=== PATIENT | male | born 1975 | race Caucasian/White ===

== ENCOUNTER 2016-10-11 18:43 | Emergency (ER) | payer OTHER ==
[~2016-10-11] VITALS: Ht 190.5 cm; Wt 117.9 kg
[2016-10-11 18:50] VITALS: BP 209/94
[2016-10-11] MEDS ORDERED: NAPR500T3 PO (19:31)
[2016-10-11] MEDS ORDERED: HYDR-971 PO (19:31)
[2016-10-11] MEDS ORDERED: DIAZ5TAB PO (19:31)
--- NOTE | 2016-10-11 19:31 | PHYS DOC ---
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 Patient denies any injury. Patient states he has tried taking Robaxin from the X- girlfriend with no relief. Patient states he does not take any statins. Patient states he has been pushing fluids including Gatorade. Review of Systems Review of Systems Constitutional: Denies fever or chills [] Eyes: Denies change in visual acuity, redness, or eye pain [] HENT: Denies nasal congestion or sore throat [] Respiratory: Denies cough or shortness of breath [] Cardiovascular: No additional information not addressed in HPI [] GI: Denies abdominal pain, nausea, vomiting, bloody stools or diarrhea [] : Denies dysuria or hematuria [] Musculoskeletal: right hamstring muscle cramp Integument: Denies rash or skin lesions [] Neurologic: Denies headache, focal weakness or sensory changes [] Endocrine: Denies polyuria or polydipsia [] Allergies Allergies Allergies Coded Allergies Type Severity Reaction Last Updated Verified Penicillins Allergy Intermediate 06/23/14 No Physical Exam Physical Exam Constitutional: Well developed, well nourished, no acute distress, non-toxic appearance. [] HENT: Normocephalic, atraumatic, bilateral external ears normal, oropharynx moist, no oral exudates, nose normal. [] Eyes: PERRLA, EOMI, conjunctiva normal, no discharge. [] Neck: Normal range of motion, no tenderness, supple, no stridor. [] Cardiovascular:Heart rate regular rhythm, no murmur [] Lungs & Thorax: Bilateral breath sounds clear to auscultation [] Abdomen: Bowel sounds normal, soft, no tenderness, no masses, no pulsatile masses. [] Skin: Warm, dry, no erythema, no rash. [] Back: No tenderness, no CVA tenderness. [] Extremities: No tenderness, no cyanosis, no clubbing, ROM intact, no edema. [] Neurologic: Alert and oriented X 3, normal motor function, normal sensory function, no focal deficits noted. [] Psychologic: Affect normal, judgement normal, mood normal. [] Current Patient Data Vital Signs Vital Signs Date Time Temp Pulse Resp B/P (MAP) Pulse Ox O2 Delivery O2 Flow Rate FiO2 10/11/16 18:50 98.4 114 20 100 Room Air 98.4 EKG EKG [] Radiology/Procedures Radiology/Procedures [] Course & Med Decision Making Course & Med Decision Making Pertinent Labs and Imaging studies reviewed. (See chart for details) Patient is in the ED with right hamstring muscle cramp that began 6 hours ago. I offered him labs and an ultrasound which he declined, he states he does not have time for that. His blood pressure was 209/94, no documented history of hypertension. At this point he is requesting pain medication including hydrocodone and Valium. 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 Prescriptions were given to him and he was discharged with instructions to return to the ED at any point symptoms worsen. I recommended he follows up with an orthopedic doctor, he states he has his own doctor he will follow-up next week. He requested a note for work which was provided. Dragon Disclaimer Dragon Disclaimer This electronic medical record was generated, in whole or in part, using a voice recognition dictation system. Departure Departure Impression: Primary Impression: Muscle cramp Additional Impression: High blood pressure Disposition: 01 HOME, SELF-CARE Condition: STABLE Referrals: ARMANDO INIGUEZ MD (PCP) SAMIRA PEREZ MD follow up next week Patient Instructions: Muscle Cramps, [id number] Additional Instructions: You were seen with a muscle cramp of the right hamstring. Please return to the ED if symptoms worsen. Follow-up with orthopedic doctor provided or your own doctor next week. Your blood pressure was 209/94, normal blood pressure is 120/ 80. This is very high. It could be related to the pain but we highly recommend you retake it at home and follow-up with your doctor if it is still elevated. Scripts Naproxen (NAPROXEN) 500 Mg Tablet 1 TAB PO BID, #60 TAB 1 Refill Prov: VAIBHAV DICKERSON [employer] 10/11/16 Diazepam (VALIUM) 5 Mg Tablet 5 MG PO TID, #15 TAB Prov: VAIBHAV DICKERSON [employer] 10/11/16 Hydrocodone/Apap 5-325 (NORCO 5-325 TABLET) 1 Each Tablet 1-2 TAB PO Q4-6HRS, #20 TAB Prov: VAIBHAV DICKERSON APRN 10/11/16 Problem Qualifiers Additional Impression: High blood pressure Hypertension type: unspecified Qualified Codes: I10 - Essential (primary) hypertension VAIBHAV DICKERSON APRN Oct 11, 2016 19:31
== END 2016-10-11 19:42 | disposition home or self-care (01) ==
LOC: ER 19:39
DX: R25.2 Cramp and spasm (principal); R03.0 Elevated blood-pressure reading, without diagnosis of hypertension; Z88.0 Allergy status to penicillin
CPT/HCPCS: 99283

== ENCOUNTER 2020-11-27 15:35 | Emergency (ER) | payer OTHER ==
[~2020-11-27] VITALS: Ht 190.5 cm; Wt 128.0 kg
[~2020-11-27 15:35] MED LIST: DIAZ5TAB PO; HYDR-3164 PO; NAPR-514 PO
[2020-11-27] MEDS ORDERED: ORPHENADRINE CITRATE 60 MG/2 ML VIAL. IM ONE (16:30)
[2020-11-27] MEDS ORDERED: KETOROLAC TROMETHAMINE 10 MG TABLET PO ONE (16:30)
[2020-11-27 16:44] VITALS: BP 160/90
--- NOTE | 2020-11-27 16:45 | PHYS DOC ---
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 He rates his pain 7/10 in the department. Patient works for the local [employer] and stated he was lifting a heavy patient when he "felt like the ribs in my back and went back together." He reports that it "felt like everything pulled apart." He now has thoracic through low back pain that radiates to his right lower extremity. He also reports some chest wall tenderness and bilateral upper extremity paresthesias. Patient denies cardiac history as well as hypertension. He has not experienced any significant back injuries in the past. Patient denies chest pressure, diaphoresis, nausea and vomiting. Patient has no other complaints at this time. Review of Systems: Review of Systems: 12 systems reviewed. ROS negative except as mentioned in HPI. Heart Score: C/O Chest Pain: N/A Current Medications: Current Medications Medications (Trade) Dose Ordered Sig/Zandra Start Time Stop Time Status Last Admin Dose Admin Ketorolac Tromethamine (Toradol) 20 mg 1X ONCE 11/27/20 16:30 11/27/20 16:31 UNV Orphenadrine Citrate (Norflex) 60 mg 1X ONCE 11/27/20 16:30 11/27/20 16:31 UNV Allergies: Allergies: Allergies Coded Allergies Type Severity Reaction Last Updated Verified Penicillins Allergy Intermediate 06/23/14 No Physical Exam: PE: Constitutional: Well developed, well nourished, no acute distress, non-toxic appearance. Neck: Normal range of motion, no step-offs, no bony tenderness, no paraspinal tenderness, no stridor. Cardiovascular: Heart rate regular rhythm, no murmur. Lungs & Thorax: Bilateral breath sounds clear to auscultation. Abdomen: Bowel sounds normal, soft, no tenderness, no masses, no pulsatile masses. Skin: Warm, dry, no erythema, no rash, no abrasions, no laceration. Back: No step-offs, no bony tenderness, thoracic and lumbar paraspinal tenderness appreciated. Extremities: No tenderness, no cyanosis, no clubbing, ROM intact, no edema. Neurologic: Alert and oriented x3, extremity strength 5/5 shoulder flexion, extension, abduction, adduction; forearm flexion, extension; inventory taker strength; hip flexion, extension; knee flexion, extension; dorsiflexion, plantarflexion; normal sensory function, no focal deficits noted. Current Patient Data: Vital Signs: Vital Signs Date Time Temp Pulse Resp B/P (MAP) Pulse Ox O2 Delivery O2 Flow Rate FiO2 11/27/20 16:22 97.8 75 16 161/95 (117) 97 Room Air 97.8 EKG: EKG: EKG Interpreted by Dr. Garcia: Regular rate and rhythm 75 bpm with no ectopic beats. No concerning ST-T wave changes. QT 366 ms/QTc 411 ms. Radiology/Procedures: Radiology/Procedures: PROCEDURE: CHEST PA & LATERAL XR CHEST 2V CLINICAL INDICATIONS: Reason: rib pain / Spl. Instructions: / History: COMPARISON: None available. Findings: Old granulomatous disease is seen. No acute lung infiltrate or pleural effusion or pulmonary edema or lung mass or pneumothorax is seen. The heart size, pulmonary vasculature, mediastinum and both vivek are unremarkable. The osseous structures appear intact. IMPRESSION: No acute radiographic abnormality is seen. Electronically signed by: Alo Barker MD (11/27/2020 4:54 PM) [id number] Course & Med Decision Making: Course & Med Decision Making Pertinent Labs and Imaging studies reviewed. (See chart for details) Patient appears to be an overall healthy 45-year-old male. His complaints are likely musculoskeletal in nature, however EKG and chest x-ray are ordered to screen for aortic dissection. Patient wishes to not receive Norflex here in the department, as his injury is work-related and he needs to be able to drive safely. He is more comfortable being discharged with a prescription for Norflex instead. Patient prescriptions transmitted to [facility] [employer], as requested. He was prescribed Norflex every 12 hours and ketorolac every 6 hours. If he does not wish to fill the prescription for ketorolac secondary to matamoros, or any other reason, he is instructed to use ibuprofen as an alternative. He already has an appointment with his primary care provider, Dr. Iniguez, who will fill out his work release note. Patient understands and is agreeable to discharge plan. Dragon Disclaimer: Moisés Disclaimer: This electronic medical record was generated, in whole or in part, using a voice recognition dictation system. Departure Departure Impression: Primary Impression: Strain of chest wall Qualified Codes: S29.011A - Strain of muscle and tendon of front wall of thorax, initial encounter Additional Impression: Low back strain Qualified Codes: S39.012A - Strain of muscle, fascia and tendon of lower back, initial encounter Disposition: HOME / SELF CARE / HOMELESS Condition: STABLE Referrals: ARMANDO INIGUEZ MD (PCP) Patient Instructions: Muscle Strain, [id number] Additional Instructions: Your chest x-rays today did not feel any rib fractures or dislocations. You will be treated with Norflex, which you can take every 12 hours, as well as Toradol. If you do not wish to fill the prescription for Toradol, you may substitute with [id number] ibuprofen 800 mg every 6 hours for pain and inflammation. Please return to the emergency department if your pain worsens or if you develop new symptoms. Scripts Ketorolac Tromethamine (KETOROLAC TROMETHAMINE) 10 Mg Tablet 1 TAB PO Q6HRS, #12 TAB Prov: MONA JEAN 11/27/20 Orphenadrine Citrate (ORPHENADRINE CITRATE) 100 Mg Tablet.er 1 TAB PO Q12HR, #20 TAB 1 Refill Prov: MONA JEAN 11/27/20 MONA JEAN Nov 27, 2020 16:45
--- NOTE | 2020-11-27 16:57 | RAD ---
XR CHEST 2V CLINICAL INDICATIONS: Reason: rib pain / Spl. Instructions: / History: COMPARISON: None available. Findings: Old granulomatous disease is seen. No acute lung infiltrate or pleural effusion or pulmonar y edema or lung mass or pneumothorax is seen. The heart size, pulmonary vasculature, mediastinum and both vivek are unremarkable. The osseous structures appear intact. IMPRESSION: No acute radiographic abnormality is seen. Electronically signed by: Alo Barker MD (11/27/2020 4:54 PM) [id number]
[2020-11-27] MEDS ORDERED: ORPH100T PO (17:20)
[2020-11-27] MEDS ORDERED: KETO10TA PO (17:20)
--- NOTE | 2020-11-27 18:29 | EKG ---
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
== END 2020-11-27 17:28 | disposition home or self-care (01) ==
LOC: ER 15:35
DX: S39.012A Strain of muscle, fascia and tendon of lower back, initial encounter (principal); S29.011A Strain of muscle and tendon of front wall of thorax, initial encounter; Z88.0 Allergy status to penicillin; X50.9XXA Other and unspecified overexertion or strenuous movements or postures, initial encounter; Y93.89 Activity, other specified; Y92.89 Other specified places as the place of occurrence of the external cause; Y99.8 Other external cause status
CPT/HCPCS: 71046; 93005; 99283

== ENCOUNTER → 2020-12-12 | Outpatient (CLI) | payer OTHER ==
[2020-11-27 16:44] VITALS: BP 160/90
[~2020-12-12] MED LIST changes: +KETO10TA PO; +ORPH100T PO
--- NOTE | 2020-12-13 20:38 | SLEEP ---
DATE OF STUDY: 12/12/2020 HOME SLEEP STUDY REFERRING PHYSICIAN: Dr. Buck Dominguez The patient is a 45-year-old who weighs 280 pounds with a BMI of 35. The patient's [place] score was 9. The patient underwent home sleep study performed at [facility]. Total recording time was 595 minutes. During the night study, the patient had 390 obstructive apneas, 6 central apneas, 132 mixed apneas and 183 hypopneas. The patient's AHI was 73 per hour. Nocturnal oximetry study revealed an average oxygen saturation of 91% with a lowest of 77%. 144 minutes were spent with oxygen saturation less than 90% and 29 minutes with saturation less than 85%. Mean heart rate 64 beats per minute. IMPRESSION: 1. Severe obstructive sleep apnea at an AHI of 73 per hour. 2. Nocturnal hypoxia secondary to obstructive sleep apnea. RECOMMENDATIONS: 1. The patient would benefit from return to the sleep lab for CPAP titration study. Alternatively home auto CPAP can be arranged. 2. Once the patient is optimally treated with CPAP, then follow up in 4-6 weeks to assess compliance and to document clinical improvement. 3. Weight loss is advised. 4. 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 5. Cautioned regarding driving until symptoms of sleep apnea resolve with above recommendations. TEJA DR: August TID: [id number] CC: BUCK DOMINGUEZ MD
== END ==
LOC: RT 08:06
PROVIDERS: ATTEND Family Medicine
DX: G47.33 Obstructive sleep apnea (adult) (pediatric) (principal); G47.34 Idiopathic sleep related nonobstructive alveolar hypoventilation
CPT/HCPCS: G0399

== ENCOUNTER → 2021-04-16 | Outpatient (CLI) | payer OTHER ==
--- NOTE | 2021-04-16 09:11 | PDOC1 ---
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, on November 24, 2020 patient reports it happened suddenly when he was working with initial sharp pain in the low back with some radiation to the left hip but now it is localized only to the low back itself patient reports he has had chiropractic treatment and is still ongoing with this about once to twice a week also physical therapy which helped but not get the pain reduced significantly patient reports still sharp and aching in the left low back and initially occurred when patient was lifting a patient on the job now it is worse with changing positions rotation of motion especially extension of the lumbar spine and left lateral rotation but without radiation once again. Patient still doing his PT exercises at home on his own and seeing chiropractor regularly. Patient has been taking [id number] analgesics as well ibuprofen which helps by about 20% also. Patient rates his disability rating 0-10 10 me the worst is a 3 with him home responsibilities 8 with recreation 7 social activity occupation 5 vasectomy before with self-care and 0 with life support activities patient reports it does awaken from sleep occasionally but not most nights much better with laying down but worse with sitting change positions standing especially extension of the lumbar spine or reaching above his head causes pain in the left low back as well. Patient reports he does not affect his bowel bladder control does affect his ability to walk occasionally for longer distances is worse with standing for prolonged periods. Patient have an MRI scan lumbar spine showing mild degenerative spondylosis with facet arthritis L4-5 as well as L5-S1. Patient is seeing a neurosurgeon who is recommending non-surgical alternatives at this time. PAST MEDICAL HISTORY: PMH: Arthritis PREVIOUS SURGERIES: Past Surgical Hx: Inguinal hernia repair x2, right ACL repair CURRENT MEDICATIONS: Current Meds: Active Scripts Medications Dose Route/Sig Max Daily Dose Days Date Category ALLERGIES; Allergies: Coded Allergies: Penicillins (Unverified Allergy, Intermediate, 06/23/14) FAMILY HISTORY: Family Hx: Different types of cancers SOCIAL HISTORY: Social Hx: Patient drinks alcohol very rarely does not smoke or use any illegal illicit or recreational drugs does chew tobacco and has for 10+ years is single lives locally in [facility] and 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 PHYSICAL EXAM: VS: Blood pressure is 167/89 pulse 69 respirations 18 temperature is 98.2 F height is 6 foot 3 inches weight is 296 pounds. PE: PHYSICAL EXAMINATION: GENERAL: The patient is awake, alert, oriented, appropriate, very pleasant in demeanor HEENT: Shows normocephalic, atraumatic. Extraocular movements are intact and symmetrical. Full espinosa and mustache. Oral cavity: Mucous membranes moist and pink. Dentition is intact. NECK: Shows anterior throat supple without palpable lymphadenopathy noted. Swallow reflex symmetrical. CHEST: Shows normal on inspection. Breath sounds are clear bilaterally, no rales rhonchi or wheezes auscultated. HEART: Shows S1, S2 clear. No murmurs auscultated. ABDOMEN: Soft, nontender, nondistended. No palpable organomegaly is noted. BACK: Shows spine grossly in the midline. Normal-appearing cervical lordotic curvature. There is slightly increased thoracic kyphosis, some flattening of the lumbar lordotic curvature. Lumbar paraspinous muscles show symmetrical on inspection, on palpation shows some moderate tenderness diffusely throughout the upper, middle and lower distribution of the paraspinous muscles, greater on the left and also into the lower thoracic paraspinous musculature, firm and tender, but without specific trigger points, without radiation of pain. The patient has good rotational motion of the lumbar spine, both laterally as well as extension and flexion with significant tenderness with left lateral rotation greater than 10 degrees but not to the right, significant tenderness with extension lumbar spine axial loading of the lumbar spine better with forward flexion which is performed at 45 degrees without significant difficulty or pain reported. No tenderness over the spinous processes, sacrum or sacroiliac regions. EXTREMITIES: Lower extremities show deep tendon reflexes 2 in the patellar and tendo calcaneus tendons. Motor exam is 5 on a scale of 5 with right dorsiflexion, extension, quadriceps and hamstring flexion and 5/5 on the left. Peripheral pulses are 1+ posterior tibial. No peripheral edema is noted bilaterally. Lower extremities are warm and dry to touch, equal in color and appearance. Straight leg raise noted to be negative bilaterally. Gaenslen's and Wes's maneuvers are negative bilaterally as well. The patient is able to stand, stand on his toes without significant difficulty or loss of balance, walks with a normal-appearing gait does not appear to favor the right or left lower extremity significantly is not use any assistive devices to ambulate. SKIN: Shows warm and dry, good turgor. No edema. No sores, rashes or bruising throughout. 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 Patient would like to pursue interventional techniques. We discussed left-sided lumbar facet medial branch blocks using description as well as anatomical models to describe the procedure. Patient wait for preauthorization with his insurance provider once obtained we will have him return for left-sided L4-5 and L5S1 level medial branch facet blocks with fluoroscopic guidance. In the meantime, patient will continue with epit-sxo-[id number] ibuprofen as well as stretching strengthening and chiropractic visits as scheduled. JEFFERY VEGA MD Apr 16, 2021 09:11
== END | disposition home or self-care (01) ==
LOC: PNCL 08:19
PROVIDERS: ATTEND Anesthesiology
DX: M54.50 Low back pain, unspecified (principal); M19.90 Unspecified osteoarthritis, unspecified site; Z79.899 Other long term (current) drug therapy; Z88.0 Allergy status to penicillin; Z72.89 Other problems related to lifestyle
CPT/HCPCS: 99205; G0463

== ENCOUNTER → 2021-05-01 | Outpatient (CLI) | payer OTHER ==
[~2021-05-01] MED LIST changes: +BUPIVACAINE MPF 0.25% 10 ML VIAL. ONE; +DEXAMETHASONE PRES.FREE 10 MG/ML VIAL. ONE; +IOHEXOL 180 MG/ML 10 ML VIAL. ONE
--- NOTE | 2021-05-01 08:31 | PDOC ---
Progress Note - Pain Clinic Date of Service: DOS: DATE: 05/01/21 TIME: 08:28 Diagnosis: Dx: Lumbar and lumbosacral spondylosis History or Present Illness: HPI: 46-year-old male returns status post initial evaluation and preauthorization for left-sided deficit medial branch blocks patient reports still significant pain in the left low back with standing walking sitting prolonged walking with pain o n the left side of the low back without radiation to the lower extremity patient reports 5 on a scale 10 is worst 5 on average and a 3 at its least and is a 5 today patient report is aching and dull tight cramping on and off in intensity better with sitting or laying down but sitting more than an hour or so pain begins to become significant patient reports its better at night generally does not awaken him from sleep most nights patient reports no loss of motor function no bowel or bladder incontinence. Physical Exam: VS: Blood pressure is 140/94 pulse 71 respirations 18 temperature 98.1 F height is 6 feet 3 inches weight 299 pounds. PE: PHYSICAL EXAMINATION: GENERAL: The patient is awake, alert, oriented, appropriate, very pleasant demeanor HEENT: Shows normocephalic, atraumatic. Extraocular movements are intact and symmetrical. Oral cavity: Mucous membranes moist and pink. Dentition is intact. NECK: Shows anterior throat supple without palpable lymphadenopathy noted. Swallow reflex symmetrical. CHEST: Shows normal on inspection. Breath sounds are clear bilaterally. HEART: Shows S1, S2 clear. No murmurs auscultated. ABDOMEN: Soft, nontender, nondistended. No palpable organomegaly is noted. BACK: Shows spine grossly in the midline. Normal-appearing cervical lordotic curvature. There is slightly increased thoracic kyphosis, some minor flattening of the lumbar lordotic curvature. Lumbar paraspinous muscles show symmetrical on inspection, on palpation shows some moderate tenderness diffusely throughout the upper, middle and lower distribution of the paraspinous muscles without specific trigger points, without radiation of pain. The patient has good rotational motion of the lumbar spine, both laterally as well as extension and flexion with significant tenderness with extension and axial loading lumbar spine on the left side only as well as lateral rotation greater than 10 degrees of the left lumbar spine but not to the right. Forward flexion is performed without significant difficulty at 45 degrees as well. EXTREMITIES: Lower extremities show deep tendon reflexes 2+ in the patellar and tendo calcaneus tendons. Motor exam is 5 on a scale of 5 with right dorsiflexion, extension, quadriceps and hamstring flexion and 5/5 on the left. Peripheral pulses are 1 posterior tibial. No peripheral edema is noted bilaterally. Lower extremities are warm and dry. SKIN: Shows warm and dry, good turgor. No edema. No sores, rashes or bruising throughout. Procedure: Procedure: Options were discussed with the patient. Patient's old chart was reviewed his c urrent medication regimen updated current review of systems updated today as well. We will proceed with left-sided L4-5 and L5-S1 medial branch facet blocks today with fluoroscopic guidance. Risks were discussed including but not limited to: Bleeding, infection, possibility of epidural hematoma and subsequent neurological compromise, dural puncture, headaches, spinal cord and/or nerve damage, side effects of steroid medication, and poor results regarding pain control. Patient understands and wished to proceed. Patient return to clinic in approximately 1 week for follow-up, was counseled as to return appointment, activity level, and side effect to be aware of. Medication Injected: Med Injected: Under sterile prep and drape using C-arm fluoroscopic guidance AP and lateral and oblique views, left L4-5 and L5-S1 facet joint MB's injections were perfor med, using quinke needles with stylette's x2,, medications injected: 15 mg dexamethasone +2 cc 0.25% bupivacaine +1 cc contrast. Condition at discharge stable patient tolerated the procedure well and no complications. Condition at Discharge: Condition at Discharge: Condition at discharge is stable, patient tolerated the procedure well and had no complications. JEFFERY VEGA MD May 01, 2021 08:31
--- NOTE | 2021-05-01 08:32 | PDOC4 ---
Procedure Note: ICD 10 Code: ICD 10 Code: M4 7.816 M4 7.817 Procedure Note: Patient was consented for left-sided L4-5 and L5-S1 medial branch facet blocks with fluoroscopic guidance. Risks were discussed including but not limited to: Bleeding, infection, possibility of epidural hematoma and subsequent neurological compromise, dural puncture, headaches, spinal cord and/or nerve damage, side effects of steroid medication, and poor results regarding pain control. Patient understands and wished to proceed. Under sterile prep and drape using C-arm fluoroscopic guidance AP and lateral and oblique views, left L4-5 and L5-S1 facet joint MB's injections were performed, using quinke needles with stylette's x2,, medications injected: 15 mg dexamethasone +2 cc 0.25% bupivacaine +1 cc contrast. Condition at discharge stable patient tolerated the procedure well and no complications. JEFFERY VEGA MD May 01, 2021 08:32
== END | disposition home or self-care (01) ==
LOC: PNCL 07:44
PROVIDERS: ATTEND Anesthesiology
DX: M47.816 Spondylosis without myelopathy or radiculopathy, lumbar region (principal); M47.817 Spondylosis without myelopathy or radiculopathy, lumbosacral region; Z79.899 Other long term (current) drug therapy; Z88.0 Allergy status to penicillin
CPT/HCPCS: 64493; 64494; J1100; J3490; Q9965

== ENCOUNTER → 2021-05-09 | Outpatient (CLI) | payer OTHER ==
[~2021-05-09] MED LIST changes: -BUPIVACAINE MPF 0.25% 10 ML VIAL. ONE; -DEXAMETHASONE PRES.FREE 10 MG/ML VIAL. ONE; -IOHEXOL 180 MG/ML 10 ML VIAL. ONE
--- NOTE | 2021-05-09 08:33 | PDOC ---
Progress Note - Pain Clinic Date of Service: DOS: DATE: 05/09/21 TIME: 08:28 Diagnosis: Dx: Lumbar and lumbosacral spondylosis Lumbar degenerative disc disease History or Present Illness: HPI: 46-year-old male returns for follow-up status post left-sided L4-5 and L5-S1 fa cet medial branch blocks. Patient reports 100% improvement for about 3 to 4 days following the injection with some soreness but only very minimal patient reports is in the low back on the left side for the first few days was doing much better was increase activity with distance walking doing household activities try with greater ease and comfort sleeping better at night decreased is [id number] pain medication where he was taking none at that time. Patient reports over the next few days the pain began to return and is not as severe as it was initially but is now it is close to baseline patient reports is a 5 on a scale 10 is worse over the past week 3 on average 0 its least and is a 3 today patient reports its aching and sharp tight in the back cramping does not radiate into the lower extremity patient reports is worse with walking or prolonged sitting especially in reclining position notices the pain as well as with driving. Patient reports no loss of motor function lower extremities no bowel or bladder incontinence. The first few days patient reports he was feeling as though he can go back to work comfortably and was very pleased with his progress as his comfort level was significantly improved. Currently, patient's pain is near baseline but not quite to that extent however again no radiation to the lower extremity and no pain on the right lower back. Patient continues with stretching strengthening exercise as well as heat application to the low back which is helpful as well. Physical Exam: VS: Blood pressure is 156/102 pulse 72 respirations 18 temperature 98.2 F height 63 inches weight 297 pounds. PE: PHYSICAL EXAMINATION: GENERAL: The patient is awake, alert, oriented, appropriate, very pleasant in demeanor HEENT: Shows normocephalic, atraumatic. Extraocular movements are intact and symmetrical. Patient wearing eyeglasses. Oral cavity: Mucous membranes moist and pink. Dentition is intact. NECK: Shows anterior throat supple without palpable lymphadenopathy noted. Swallow reflex symmetrical. CHEST: Shows normal on inspection. Breath sounds are clear bilaterally. HEART: Shows S1, S2 clear. No murmurs auscultated. ABDOMEN: Soft, nontender, nondistended. No palpable organomegaly is noted. BACK: Shows spine grossly in the midline. Normal-appearing cervical lordotic curvature. There is slightly increased thoracic kyphosis, some minor flattening of the lumbar lordotic curvature. Lumbar paraspinous muscles show symmetrical on inspection, on palpation shows some moderate tenderness diffusely throughout the upper, middle and lower distribution of the paraspinous musculature, but without specific trigger points, without radiation of pain. The patient has good rotational motion of the lumbar spine, both laterally as well as extension and flexion with significant tenderness with left lateral rotation greater than 10 degrees as well as extension and axial loading lumbar spine with 45 degrees forward flexion pain is decreased. EXTREMITIES: Lower extremities show deep tendon reflexes 2+ in the patellar and tendo calcaneus tendons. Motor exam is 5 on a scale of 5 with right d orsiflexion, extension, quadriceps and hamstring flexion and 5/5 on the left. Peripheral pulses are 1+ posterior tibial. No peripheral edema is noted bilaterally. Lower extremities are warm and dry to touch, equal in color and appearance. SKIN: Shows warm and dry, good turgor. No edema. No sores, rashes or bruising throughout. Procedure: Procedure: Options were discussed the patient. Patient's old chart was reviewed as his current medication regimen updated currently systems updated today as well. Patient did significantly better after the first set of blocks we will preauthorize patient for a repeat medial branch block left side L4-5 and L5-S1. We discussed that if similar results were obtained we will be a candidate for radiofrequency ablation as well. Patient is interested in pursuing this and wait for preauthorization. Once approved to have patient return for left-sided L4-5 and L5-S1 level medial branch blocks with fluoroscopic guidance. In the meantime, patient will continue with stretching strength exercises as well as oral analgesics as currently. Medication Injected: Med Injected: None Condition at Discharge: Condition at Discharge: Condition at discharge is stable. JEFFERY VEGA MD May 09, 2021 08:33
== END | disposition home or self-care (01) ==
LOC: PNCL 07:48
PROVIDERS: ATTEND Anesthesiology
DX: M47.817 Spondylosis without myelopathy or radiculopathy, lumbosacral region (principal); M47.816 Spondylosis without myelopathy or radiculopathy, lumbar region; M51.36 Other intervertebral disc degeneration, lumbar region; Z79.899 Other long term (current) drug therapy; Z88.0 Allergy status to penicillin; Z72.89 Other problems related to lifestyle
CPT/HCPCS: 99212; G0463

== ENCOUNTER → 2021-05-23 | Outpatient (CLI) | payer OTHER ==
[~2021-05-23] MED LIST changes: +BUPIVACAINE MPF 0.25% 10 ML VIAL. ONE; +IOHEXOL 180 MG/ML 10 ML VIAL. ONE; +methylPREDNISolone ACETATE 40 MG/ML VIAL. ONE; +methylPREDNISolone ACETATE 80 MG/ML VIAL. ONE
--- NOTE | 2021-05-23 10:42 | PDOC ---
Progress Note - Pain Clinic Date of Service: DOS: DATE: 05/23/21 TIME: 10:37 Diagnosis: Dx: Lumbar lumbosacral spondylosis with lumbar degenerative disc disease History or Present Illness: HPI: 46-year-old male returns for follow-up status post lumbar left-sided L4-5 and L5-S1 facet medial branch blocks. Patient reports about 1% provement for 3 to 4 days following the injections indicate pain began to gradually return in the low back on the left side only. Patient reports no radiation into the lower extremity is worse with standing walking changing position especially with extension and reaching up over his head with lumbar compression with extension of the lumbar spine. Patient reports pain is aching and sharp dull tight cramping can be constant with extended standing and repetitive motion patient reports pain with rotation to the left side as well with extension and axial loading of the lumbar spine also. Patient rates his pain as a 4-5 on scale 10 is average 5 on his worst 3 at its least is a 4 today. Patient reports no loss of motor function no bowel or bladder incontinence. Physical Exam: VS: Blood pressure is 136/87 pulse 73 respirations 18 temperature 98.1 degrees 296 pounds. PE: PHYSICAL EXAMINATION: GENERAL: The patient is awake, alert, oriented, appropriate, very pleasant in demeanor HEENT: Shows normocephalic, atraumatic. Extraocular movements are intact and symmetrical. Oral cavity: Mucous membranes moist and pink. Dentition is intact. NECK: Shows anterior throat supple without palpable lymphadenopathy noted. Swallow reflex symmetrical. CHEST: Shows normal on inspection. Breath sounds are clear bilaterally, no rales rhonchi or wheezes auscultated. HEART: Shows S1, S2 clear. No murmurs auscultated. ABDOMEN: Soft, nontender, nondistended. No palpable organomegaly is noted. BACK: Shows spine grossly in the midline. Normal-appearing cervical lordotic curvature. There is slightly increased thoracic kyphosis, some minor flattening of the lumbar lordotic curvature. Lumbar paraspinous muscles show symmetrical on inspection, on palpation shows some moderate tenderness diffusely throughout the upper, middle and lower distribution of the paraspinous muscles, but without specific trigger points, without radiation of pain. The patient has good rotational motion of the lumbar spine, both laterally as well as extension and flexion with significant tenderness with left lateral rotation greater than 10 degrees with pain and left-sided low back only without radiation, extension lumbar spine shows significant tenderness as well on the left side forward flexion decreases this tenderness is performed fully at 45 degrees right lateral rotation without significant difficulty as well. EXTREMITIES: Lower extremities show deep tendon reflexes 2+ in the patellar and tendo calcaneus tendons. Motor exam is 5 on a scale of 5 with right dorsiflexion, extension, quadriceps and hamstring flexion and 5/5 on the left. Peripheral pulses are 1 posterior tibial. No peripheral edema is noted bilaterally. Lower extremities are warm and dry to touch, equal in color and appearance. SKIN: Shows warm and dry, good turgor. No edema. No sores, rashes or bruising throughout. Procedure: Procedure: Options discussed with the patient. Patient chart was reviewed his his current medication regimen updated current review of systems updated today as well. We will proceed with left-sided L4-5 and L5-S1 medial branch facet blocks today with fluoroscopic guidance. Risks were discussed including but not limited to: Bleeding, infection, possibility of epidural hematoma and subsequent neurolo gical compromise, dural puncture, headaches, spinal cord and/or nerve damage, side effects of steroid medication, and poor results regarding pain control. Patient understands and wished to proceed. Patient will return to the clinic in approximately 2 weeks for follow-up, was counseled as to return appointment, activity level, and side effects to be aware of. Medication Injected: Med Injected: Under sterile prep and drape using C-arm fluoroscopic guidance AP and lateral and oblique views, left L4-5 and L5-S1 facet joint MB's injections were performed, using 22-gauge quinke needles with stylette's x2,, medications injected: 120 mg methylprednisolone +2 cc 0.25% bupivacaine +1 cc contrast. Condition at discharge is stable, patient tolerated the procedure well and no complications. Condition at Discharge: Condition at Discharge: Condition at discharge stable, patient tolerated the procedure well and had no complications. JEFFERY VEGA MD May 23, 2021 10:42
--- NOTE | 2021-05-23 10:42 | PDOC4 ---
Procedure Note: ICD 10 Code: ICD 10 Code: M47.8 16 M47.8 17 Procedure Note: Patient was consented for left-sided L4-5 and L5-S1 facet medial branch blocks with fluoroscopic guidance. Risks were discussed including but not limited to: Bleeding, infection, possibility of epidural hematoma and subsequent neurological compromise, dural puncture, headaches, spinal cord and/or nerve damage, side effects of steroid medication, and poor results regarding pain control. Patient understands and wished to proceed. Under sterile prep and drape using C-arm fluoroscopic guidance AP and lateral and oblique views, left L4-5 and L5-S1 facet joint MB's injections were performed, using 22-gauge quinke needles with stylette's x2,, medications injected: 120 mg methylprednisolone +2 cc 0.25% bupivacaine +1 cc contrast. Condition at discharge is stable, patient tolerated the procedure well and no complications. JEFFERY VEGA MD May 23, 2021 10:42
== END | disposition home or self-care (01) ==
LOC: PNCL 09:25
PROVIDERS: ATTEND Anesthesiology
DX: M47.816 Spondylosis without myelopathy or radiculopathy, lumbar region (principal); M47.817 Spondylosis without myelopathy or radiculopathy, lumbosacral region; M51.36 Other intervertebral disc degeneration, lumbar region; Z79.899 Other long term (current) drug therapy; Z88.0 Allergy status to penicillin; Z72.89 Other problems related to lifestyle
CPT/HCPCS: 64493; 64494; J1030; J1040; J3490; Q9965

== ENCOUNTER → 2021-06-04 | Outpatient (CLI) | payer OTHER ==
[~2021-06-04] MED LIST changes: -BUPIVACAINE MPF 0.25% 10 ML VIAL. ONE; -IOHEXOL 180 MG/ML 10 ML VIAL. ONE; -methylPREDNISolone ACETATE 40 MG/ML VIAL. ONE; -methylPREDNISolone ACETATE 80 MG/ML VIAL. ONE
--- NOTE | 2021-06-04 09:57 | PDOC ---
Progress Note - Pain Clinic Date of Service: DOS: DATE: 06/04/21 TIME: 09:51 Diagnosis: Dx: Lumbar lumbosacral spondylosis Lumbar degenerative disc disease History or Present Illness: HPI: 46-year-old male returns for follow-up status post lumbar medial branch blocks at the left L4-5 and L5-S1 levels x2. Patient reports 90% improvement after the last injection lasting for about a week after the injections patient reports the pain is returning now in the left side in the low back worse with walking standing changing positions and especially extending or reaching over his head with his hands and extension of the lumbar spine. Patient reports his pain is a 4 scale 10 is worse over the past week for an average 3 to [place] is a 4 today patient ports aching cramping radiating across the back at times but not into the lower extremities. Patient reports worse with repetitive motions lifting bending twisting to the left side and again extending or reaching over his head with his arms. 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 Patient reports no bowel or bladder incontinence no motor deficits. Physical Exam: VS: Blood pressure is 167/100 pulse 56 respirations 18 temperature 98.2 F height is 6 foot 3 inches, weight is 294 pounds PE: PHYSICAL EXAMINATION: GENERAL: The patient is awake, alert, oriented, appropriate, very pleasant in demeanor HEENT: Shows normocephalic, atraumatic. Extraocular movements are intact and symmetrical. Oral cavity: Mucous membranes moist and pink. Dentition is intact. NECK: Shows anterior throat supple without palpable lymphadenopathy noted. Swallow reflex symmetrical. CHEST: Shows normal on inspection. Breath sounds are clear bilaterally. HEART: Shows S1, S2 clear. No murmurs auscultated. ABDOMEN: Soft, nontender, nondistended. No palpable organomegaly is noted. BACK: Shows spine grossly in the midline. Normal-appearing cervical lordotic curvature. There is slightly increased thoracic kyphosis, some minor flattening of the lumbar lordotic curvature. Lumbar paraspinous muscles show symmetrical on inspection, on palpation shows some moderate tenderness diffusely throughout the upper, middle and lower distribution of the paraspinous muscles, but without specific trigger points, without radiation of pain. The patient has good rotational motion of the lumbar spine, both laterally as well as extension and flexion with significant tenderness with left lateral rotation greater than 10 degrees as well as extension and axial loading of the lumbar spine with left- sided pain only forward flexion is performed at 45 degrees without significant difficulty. EXTREMITIES: Lower extremities show deep tendon reflexes 2+ in the patellar and tendo calcaneus tendons. Motor exam is 5 on a scale of 5 with right dorsiflexion, extension, quadriceps and hamstring flexion and 5/5 on the left. Peripheral pulses are 1+ posterior tibial. No peripheral edema is noted bilaterally. Lower extremities are warm and dry to touch, equal in color and appearance. SKIN: Shows warm and dry, good turgor. No edema. No sores, rashes or bruising throughout. Procedure: Procedure: Options were discussed with the patient. Patient's chart was reviewed his current medication regimen updated current review of systems updated today as well. We will preauthorize patient for radiofrequency ablation of the left L4-5 and L5-S1 medial branches as patient is done very well with 2 sets of diagnostic blocks now with 90% improvement the last 1 lasting about a week or so. Patient will continue with activity as tolerated increasing stretching strength exercises as tolerated. Once approved, patient will return for radiofrequency ablation left-sided L4-5 and L5-S1 medial branches with fluoroscopic guidance. Medication Injected: Med Injected: none Condition at Discharge: Condition at Discharge: Condition at discharge is stable. JEFFERY VEGA MD Jun 04, 2021 09:57
== END | disposition home or self-care (01) ==
LOC: PNCL 08:51
PROVIDERS: ATTEND Anesthesiology
DX: M51.36 Other intervertebral disc degeneration, lumbar region (principal); M47.816 Spondylosis without myelopathy or radiculopathy, lumbar region; M47.817 Spondylosis without myelopathy or radiculopathy, lumbosacral region; Z79.899 Other long term (current) drug therapy; Z88.0 Allergy status to penicillin; Z72.89 Other problems related to lifestyle
CPT/HCPCS: 99212; G0463

== ENCOUNTER → 2021-06-18 | Outpatient (CLI) | payer OTHER ==
[~2021-06-18] MED LIST changes: +BUPIVACAINE MPF 0.25% 10 ML VIAL. ONE; +DEXAMETHASONE PRES.FREE 10 MG/ML VIAL. ONE; +LIDOCAINE 1% PF 2 ML VIAL. ONE; +LIDOCAINE 2% PF 5 ML VIAL. ONE
--- NOTE | 2021-06-18 14:56 | PDOC ---
Progress Note - Pain Clinic Date of Service: DOS: DATE: 06/18/21 TIME: 14:44 Diagnosis: Dx: Lumbar and lumbosacral spondylosis Lumbar degenerative disc disease History or Present Illness: HPI: 46-year-old male returns for follow-up status post bilateral medial branch bloc ks on the left L4-5 and L5-S1 with 90% improvement overall patient reports still some pain in the left low back after his last procedure and rates it as a 4 to scale 10 at its worst 3 on average 3 at its least is a 3 today. Patient describes pain as aching and tight can be constant with repetitive motions sitting for prolonged period standing for prolonged periods greater than 20 minutes to 30minutes also disturbed sleep occasionally but not most nights. Patient reports no loss of motor function no bowel or bladder incontinence no radiation to the lower extremities. After the last medial branch blocks patient is doing much better with increased activity doing household activities as well as travel with greater ease and comfort. 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 Physical Exam: VS: Blood pressure is 138/93 pulse 76 respirations 18 temperature is 99.5 F weight is 292 pounds. PE: PHYSICAL EXAMINATION: GENERAL: The patient is awake, alert, oriented, appropriate, very pleasant in demeanor HEENT: Shows normocephalic, atraumatic. Extraocular movements are intact and symmetrical. Oral cavity: Mucous membranes moist and pink. Dentition is intact. NECK: Shows anterior throat supple without palpable lymphadenopathy noted. Swallow reflex symmetrical. CHEST: Shows normal on inspection. Breath sounds are clear bilaterally, no rales rhonchi or wheezes auscultated. HEART: Shows S1, S2 clear. No murmurs auscultated. ABDOMEN: Soft, nontender, nondistended. No palpable organomegaly is noted. BACK: Shows spine grossly in the midline. Normal-appearing cervical lordotic curvature. There is slightly increased thoracic kyphosis, some minor flattening of the lumbar lordotic curvature. Lumbar paraspinous muscles show symmetrical on inspection, on palpation shows some moderate tenderness diffusely throughout the upper, middle and lower distribution of the paraspinous musculature, but without specific trigger points, without radiation of pain. The patient has good rotational motion of the lumbar spine, both laterally as well as extension and flexion with moderate pain with extension of the lumbar spine and axial loading of the low back better with forward flexion 45 degrees right and left lateral [place] shows no tenderness right-sided and moderate tenderness with left-sided rotation at 10 degrees without radiation. EXTREMITIES: Lower extremities show deep tendon reflexes 2+ in the patellar and tendo calcaneus tendons. Motor exam is 5 on a scale of 5 with right dorsiflexion, extension, quadriceps and hamstring flexion and 5/5 on the left. Peripheral pulses are 1+ posterior tibial. No peripheral edema is noted bilaterally. Lower extremities are warm and dry to touch, equal in color and appearance. SKIN: Shows warm and dry, good turgor. No edema. No sores, rashes or bruising throughout. Procedure: Procedure: Options were discussed with the patient. Patient's old chart was reviewed his current medication regimen updated her review of systems updated today as well. We will proceed with radiofrequency ablation of the left-sided L4-5 and L5-S1 facet medial branches with fluoroscopic guidance. Risks were discussed including but not limited to: Bleeding, infection, possibility of epidural hematoma and subsequent neurological compromise, dural puncture, headaches, spinal cord and/or nerve damage, potential thermal injury to the surrounding structures including motor nerves with permanent ischemic damage, side effects of steroid medication, and poor results regarding pain control. Patient understands and wished to proceed. Medication Injected: Med Injected: Under sterile prep and drape patient in prone position using C-arm fluoroscopic guidance patient's lumbar spine was visualized in both AP oblique and lateral views using 1% lidocaine to topically anesthetize the areas overlying the left L3-4, L4-5 and L5-S1 facet joints at the point of the medial branches. Using a 22-gauge insulated radiofrequency needle with curved tips and stylette, the needles were advanced to contact the region of the facet with the medial branch targets. This was repeated at the L3-4 L4-5 and L5-S1 levels. Stylette was removed and using radiofrequency probe inserted into each needle individually at each level and then motor tested with no motor stimulation of the lower extremity. Patient did have some multifidus musculature contraction in the lumbar spine only but without radiation. At this time 1 cc of 2% lidocaine was then injected in each needle after motor testing but prior to radiofrequency ablation. Needle position was confirmed continuously throughout the radiofrequency ablation with both AP oblique and lateral views at each level. At this time radiofrequency ablation was carried out each level for 60 seconds at 80 C x 2 at each level with the tip of the needle turned 90 degrees after the first 60 seconds and then subsequent 60 seconds of radiofrequency ablation. Once radiofrequency ablation was completed solution containing 0.25% bupivacaine 1 cc an 6 mg dexamethasone at each level was then injected. Needle was then withdrawn. The procedure was repeated for the contralateral side as described as well. Patient had no paresthesias throughout the procedure no radiation of pain into the lower extremities no lower extremity motor response with motor testing bilaterally. Please see radiofrequency flowsheet for levels, temperatures, impedance, etc. Condition at Discharge: Condition at Discharge: Patient discharge stable, patient tolerated procedure well and had no complications. JEFFERY VEGA MD June 18, 2021 14:56
== END | disposition home or self-care (01) ==
LOC: PNCL 12:50
PROVIDERS: ATTEND Anesthesiology
DX: M47.816 Spondylosis without myelopathy or radiculopathy, lumbar region (principal); M47.817 Spondylosis without myelopathy or radiculopathy, lumbosacral region; M51.36 Other intervertebral disc degeneration, lumbar region; Z79.899 Other long term (current) drug therapy; Z72.89 Other problems related to lifestyle; Z98.890 Other specified postprocedural states; Z88.0 Allergy status to penicillin
CPT/HCPCS: 64635; 64636; J1100; J3490